=== PATIENT | male | born 1995 | race Caucasian/White ===

== ENCOUNTER 2017-06-13 12:29 | Emergency (ER) | payer OTHER ==
[2017-06-13 12:39] VITALS: BP 121/64; TEMP 97.7
--- NOTE | 2017-06-13 13:11 | C.PDOC ---
History Of Present Illness 22 year old male presents to the ED for evaluation of pain and swelling to his right ankle after he twisted the ankle while playing basketball last night. Patient notes he is ambulatory without pain. Patient does not want an x-ray of the area because he does not have insurance. Patient presents to the ED requesting further evaluation and a work note. He gladis head injury/LOC and extremity numbness/weakness. Time Seen by Provider: 06/13/17 13:01 Chief Complaint (Nursing): Lower Extremity Problem/Injury History Per: Patient History/Exam Limitations: no limitations Onset/Duration Of Symptoms: Hrs Current Symptoms Are (Timing): Still Present Additional History Per: Patient - Ankle/Foot Description Of Injury: Twisted Past Medical History Reviewed: Historical Data, Nursing Documentation, Vital Signs Vital Signs: Last Vital Signs Temp 97.7 F 06/13/17 12:37 Pulse 58 L 06/13/17 13:14 Resp 17 06/13/17 13:14 BP 121/64 06/13/17 12:37 Pulse Ox 100 06/13/17 14:22 - Medical History PMH: No Chronic Diseases Surgical History: No Surg Hx Family History: States: Unknown Family Hx - Social History Hx Alcohol Use: No Hx Substance Use: No - Immunization History Hx Tetanus Toxoid Vaccination: Yes Hx Influenza Vaccination: Yes Hx Pneumococcal Vaccination: No Review Of Systems Musculoskeletal: Positive for: Other (right ankle pain ) Neurological: Negative for: Weakness, Numbness, Other (head injury/LOC) Physical Exam - Physical Exam Appears: Non-toxic, No Acute Distress Skin: Normal Color, Warm, Dry Extremity: Normal ROM (right ankle ), No Tenderness (focal, right ankle ), Capillary Refill (less than 2 seconds ), No Deformity, Swelling (mild to right ankle ), No Other (tenderness to right toes on palpation ) Pulses: Right Dorsalis Pedis: Normal Neurological/Psych: Oriented x3, Normal Speech, Normal Cognition, Normal Motor, Normal Sensation Gait: Steady ED Course And Treatment O2 Sat by Pulse Oximetry: 100 (on RA ) Pulse Ox Interpretation: Normal Medical Decision Making Medical Decision Making: Plan: * DANYELLE wrap * reassess and disposition Progress: Patient refuses XR imaging at this time, stating he is not covered by insurance. DANYELLE bandage applied to right ankle by CP and checked by me. On reassessment, patient is resting comfortably, showing no signs of distress and is stable for discharge. Patient is instructed on RICE: Rest, ice, compress and elevate. Patient is given a work note and is advised to follow up with his PMD within 1-2 days for further evaluation. Disposition - Disposition Disposition: HOME/ ROUTINE Disposition Time: 13:10 Condition: GOOD Additional Instructions: Rest, ice, compress and elevate. Return to ED if condition worsens. Return to ED if you agree to xrays. Follow-up with PMD within 2 days. Instructions: Ankle Sprain (ED) Forms: [employer] [facility] (Nepalese), Work Excuse - Clinical Impression Clinical Impression: Ankle sprain - Scribe Statement The provider has reviewed the documentation as recorded by the Scribe (Mariama Banuelos) Provider Attestation: All medical record entries made by the Scribe were at my direction and personally dictated by me. I have reviewed the chart and agree that the record accurately reflects my personal performance of the history, physical exam, medical decision making, and the department course for this patient. I have also personally directed, reviewed, and agree with the discharge instructions and disposition.
[2017-06-13 13:15] VITALS: PULSE 58; RESP 17
[2017-06-13 13:59] VITALS: O2SAT 100
== END 2017-06-13 13:28 | disposition home or self-care (01) ==
LOC: C.ER 12:29
DX: S93.401A Sprain of unspecified ligament of right ankle, initial encounter (principal); X50.9XXA Other and unspecified overexertion or strenuous movements or postures, initial encounter; Y93.67 Activity, basketball

== ENCOUNTER 2018-02-10 16:33 | Emergency (ER) | payer OTHER ==
[2018-02-10 16:37] VITALS: BMI 21.7
[2018-02-10 16:38] VITALS: BP 129/68; PULSE 63; RESP 16; TEMP 98.8; O2SAT 99
[2018-02-10] MEDS ORDERED: Tdap Vaccine 0.5 ml Vial (10-64 yrs) IM ONE (18:01)
--- NOTE | 2018-02-10 18:06 | C.PDOC ---
History Of Present Illness 22 year old male presents to the ED complaining of hearing problems and fullness sensation in right ear for a year, intermittently, worse in last few days. pt denies putting anything in the ear. Also denies any fever or chills. Time Seen by Provider: 02/10/18 17:13 Chief Complaint (Nursing): ENT Problem History Per: Patient History/Exam Limitations: None Onset/Duration Of Symptoms: Intermittent Episodes Quality (Ear): Foreign Body Past Medical History Reviewed: Historical Data, Nursing Documentation, Vital Signs Vital Signs: Last Vital Signs Temp 98.8 F 02/10/18 16:37 Pulse 63 02/10/18 16:37 Resp 16 02/10/18 16:37 BP 129/68 02/10/18 16:37 Pulse Ox 99 02/12/18 10:12 - Medical History PMH: No Chronic Diseases Family History: States: Unknown Family Hx - Social History Hx Alcohol Use: No Hx Substance Use: No - Immunization History Hx Tetanus Toxoid Vaccination: Yes Hx Influenza Vaccination: Yes Hx Pneumococcal Vaccination: No Review Of Systems Constitutional: Negative for: Fever, Chills ENT: Positive for: Ear Pain Physical Exam - Physical Exam Appears: Non-toxic, No Acute Distress Skin: Normal Color, Warm, Dry Head: Atraumatic, Normacephalic Eye(s): bilateral: Normal Inspection Ear(s): Left: Normal, Right: Other (silver colored c shaped foreign body deep in right canal, with excoriationsnoted anterior to fb. tm not visualized.) Neurological/Psych: Oriented x3, Normal Speech, Normal Cognition ED Course And Treatment O2 Sat by Pulse Oximetry: 99 (RA) Pulse Ox Interpretation: Normal Medical Decision Making Medical Decision Making: multiple attempts to remove fb from right ear with Hand extractor and alligator clip made without success. pt referred to ent for fb removal. Disposition - Disposition Referrals: Mitch Petersen MD [Staff Provider] - Disposition: HOME/ ROUTINE Disposition Time: 18:04 Condition: GOOD Additional Instructions: Please do not put anything in either ear. Take antibiotics as prescribed; tylenol or Motrin for pain. Please follow up with Dr Petersen or in Medical clinic as soon as pssible. Prescriptions: Amoxicillin [Amoxil 500 mg Cap] 500 mg PO TID #30 cap Instructions: Outer Ear Infection (DC), Removing Objects Stuck in the Ear Forms: [facility] (Chilean), General Discharge Instructions - Clinical Impression Clinical Impression: Foreign body of ear, right, Otitis externa of right ear - PA / DICE SPOTTER / Resident Statement MD/DO has reviewed & agrees with the documentation as recorded. - Scribe Statement The provider has reviewed the documentation as recorded by the Scribe Delmis Cesar
[2018-02-10] MEDS ORDERED: Tetanus/Diphtheria Toxoids 0.5 ml Syringe IM ONE (18:11)
== END 2018-02-10 18:29 | disposition home or self-care (01) ==
LOC: C.ER 16:33
DX: T16.1XXA Foreign body in right ear, initial encounter (principal); X58.XXXA Exposure to other specified factors, initial encounter; H60.91 Unspecified otitis externa, right ear